=== PATIENT | male | born 2000 | race Hispanic/Latino ===

== ENCOUNTER 2018-07-23 17:43 | Emergency (ER) | payer MEDICAID | END 2018-07-23 18:53 | disposition home or self-care (01) | LOC: EDH 17:43 | DX: S60.352A Superficial foreign body of left thumb, initial encounter (principal); Z88.0 Allergy status to penicillin; Z88.1 Allergy status to other antibiotic agents; F90.9 Attention-deficit hyperactivity disorder, unspecified type; X58.XXXA Exposure to other specified factors, initial encounter; Y93.89 Activity, other specified; Y92.89 Other specified places as the place of occurrence of the external cause; Y99.8 Other external cause status ==